=== PATIENT | male | born 1960 | race African-American/Black ===

== ENCOUNTER → 2019-03-07 | Outpatient (CLI) | payer OTHER | LOC: COL.RAD 09:00 | DX: M75.122 Complete rotator cuff tear or rupture of left shoulder, not specified as traumatic (principal) ==

== ENCOUNTER → 2022-04-24 | Outpatient (CLI) | payer OTHER | LOC: COL.PUL 12:58 | DX: R06.02 Shortness of breath (principal) | CPT/HCPCS: J7674 ==

== ENCOUNTER 2022-06-15 11:41 | Emergency (ER) | payer OTHER ==
[~2022-06-15 11:41] MED LIST: ALDACTONE 25MG25 M1 PO; ALDACTONE50 MG PO; AMOXICILLIN 8751 TAB PO; APRESOLINE 25MG25 MG PO; ASPIRIN E.C. 8181 MG PO; ASTELIN NASAL S34 ML NS; AVAPRO300 M1 PO; CALCIUM 600-D 61 TAB PO; CATAPRES 0.1MG0.1 MG PO; CELEBREX 200MG200 MG PO; COREG 6.256.25 MG/TA PO; COREG12.5 MG; DEBROX OT; EPA FISH OIL1 SGL PO; FIORICET 325 MG1 TA1 PO; FLOVENT 44MCG I13 GM IH; LAMISIL1% TOP; LASIX 20MG TABL20 MG PO; LIDO35.4 TP; PATANOL OPHTHALM5 ML OD; PERIDEX (CHLOR480 ML MM; PRILOSEC 20MG20 MG PO; PROAIR HFA0.09 MG/AC IH; ROBAXIN 75750 MG/TAB PO; SINGULAIR 110 MG/TAB; TESSALON P100 MG/CAP PO; TRIAMC 0.025 80 TOP; ULTRAM 50MG TAB50 MG PO; VITAMIN C500 MG; VOLTAREN GEL 1%1 TU; ZITHROMAX 250M250 MG; ZOLOFT 50MG50 MG PO; ZYRTEC 10MG10 MG PO; [UNRECOGNIZED DRUG - OTHER]
[2022-06-15 11:46] VITALS: TEMP 98.2
[2022-06-15 13:27] VITALS: BP 169/114; PULSE 58
== END 2022-06-15 13:31 | disposition home or self-care (01) ==
LOC: COL.ER 11:41
DX: I10 Essential (primary) hypertension (principal)